=== PATIENT | male | born 1970 | race Asian ===

== ENCOUNTER 2018-04-26 09:24 | Emergency (ER) | payer MEDICAID ==
[2018-04-26 09:31] VITALS: Ht 172.7 cm
[2018-04-26 11:51] LABS: PLATELET COUNT 196 x10^3mcL (130-400); RED CELL DISTRIBUTION WIDTH 12.8 % (11.5-14.5)
[2018-04-26 12:03] LABS: BASOPHIL % 0 % (0-2)
[2018-04-26 12:05] LABS: CALCIUM 8.9 mg/dL (8.5-10.1); CARBON DIOXIDE 28.8 mmol/L (21-32); CHLORIDE SERUM 106 mmol/L (98-107); GFR1 > 60 mL/min; GLUCOSE SERUM 128 mg/dL (74-106); POTASSIUM SERUM 4.6 mmol/L (3.5-5.1); SODIUM SERUM 143 mmol/L (136-145)
[2018-04-26 12:11] LABS: ALBUMIN 3.9 g/dL (3.4-5.0); ALKALINE PHOSPHATASE 76 U/L (46-116); AST/SGOT 15 U/L (15-37); BILIRUBIN TOTAL 0.55 mg/dL (0.20-1.00); CHOLESTEROL 137 mg/dL (<200); CHOLESTEROL/HDL RATIO 2.9; HDL CHOLESTEROL 48 mg/dL (40-60); LIPASE 134 IU/L (73-393); TOTAL PROTEIN, SERUM 7.9 g/dL (6.4-8.2); TRIGLYCERIDES 70 mg/dL (<150)
[2018-04-26 12:18] LABS: FREE T4 1.01 ng/dL (0.76-1.46); FREE THYROXINE INDEX 2.5 ug/dL (1.4-4.5)
[2018-04-26 12:49] LABS: ALT/SGPT 14 U/L (16-63)
[2018-04-26 13:06] LABS: T3 TOTAL 0.69 ng/mL
[2018-04-26 13:52] LABS: microscopic required? NO
[2018-04-26 14:09] LABS: urine erythrocyte NEGATIVE (NEGATIVE)
[2018-04-26 14:34] VITALS: BP 159/79
== END 2018-04-26 14:34 | disposition home or self-care (01) ==
LOC: ED 09:24
PROVIDERS: Specialist
DX: R11.10 Vomiting, unspecified (principal); I10 Essential (primary) hypertension; E11.9 Type 2 diabetes mellitus without complications; Z86.73 Personal history of transient ischemic attack (TIA), and cerebral infarction without residual deficits
CPT/HCPCS: 82962; 83880; 84439; J7030; Q0162

== ENCOUNTER 2018-07-03 16:53 | Emergency (ER) | payer MEDICAID ==
[~2018-07-03] VITALS: Ht 172.7 cm; Wt 65.0 kg
[2018-07-03 17:40] VITALS: Ht 172.7 cm; Wt 65.0 kg
[2018-07-03 18:29] LABS: BASOPHIL % 0.2 % (0-2); PLATELET COUNT 196 x10^3mcL (130-400); RED CELL DISTRIBUTION WIDTH 13.4 % (11.5-14.5)
[2018-07-03 18:38] LABS: CALCIUM 8.4 mg/dL (8.5-10.1); CARBON DIOXIDE 29.7 mmol/L (21-32); CHLORIDE SERUM 105 mmol/L (98-107); CREATININE SERUM 0.8 mg/dL (0.7-1.3); GFR1 > 60 mL/min; GLUCOSE SERUM 111 mg/dL (74-106); POTASSIUM SERUM 3.6 mmol/L (3.5-5.1); SODIUM SERUM 143 mmol/L (136-145)
[2018-07-03 20:03] VITALS: BP 158/86
== END 2018-07-03 20:10 | disposition home or self-care (01) ==
LOC: ED 16:53
PROVIDERS: Emergency Medicine
DX: I10 Essential (primary) hypertension (principal); E11.9 Type 2 diabetes mellitus without complications; R51 Headache; Z86.73 Personal history of transient ischemic attack (TIA), and cerebral infarction without residual deficits
CPT/HCPCS: J3010; J3490; J7030

== ENCOUNTER 2018-07-04 07:51 | Emergency (ER) | payer MEDICAID ==
[~2018-07-04] VITALS: Ht 172.7 cm; Wt 68.0 kg
[2018-07-04 08:03] VITALS: BP 185/104; Ht 172.7 cm; Wt 68.0 kg
== END 2018-07-04 08:38 | disposition home or self-care (01) ==
LOC: ED 07:51
DX: I16.0 Hypertensive urgency (principal); I10 Essential (primary) hypertension; E11.9 Type 2 diabetes mellitus without complications; Z86.73 Personal history of transient ischemic attack (TIA), and cerebral infarction without residual deficits

== ENCOUNTER 2018-07-04 15:01 | Emergency (ER) | payer MEDICAID ==
[~2018-07-04] VITALS: Ht 172.7 cm; Wt 65.3 kg
[2018-07-04 15:08] VITALS: Ht 172.7 cm; Wt 65.3 kg
[2018-07-04 16:26] VITALS: BP 144/8
== END 2018-07-04 16:26 | disposition home or self-care (01) ==
LOC: ED 15:01
DX: I16.0 Hypertensive urgency (principal); I10 Essential (primary) hypertension; E11.9 Type 2 diabetes mellitus without complications; Z86.73 Personal history of transient ischemic attack (TIA), and cerebral infarction without residual deficits
CPT/HCPCS: J0780; J1885

== ENCOUNTER 2019-09-02 14:02 | Emergency (ER) | payer OTHER ==
[~2019-09-02] VITALS: Ht 170.2 cm; Wt 74.8 kg
[2019-09-02 14:55] VITALS: Ht 170.2 cm; Wt 74.8 kg
[2019-09-02 17:30] VITALS: BP 122/78
== END 2019-09-02 17:30 | disposition home or self-care (01) ==
LOC: ED 14:02
DX: J40 Bronchitis, not specified as acute or chronic (principal); R42 Dizziness and giddiness; E11.9 Type 2 diabetes mellitus without complications; I10 Essential (primary) hypertension; Z86.73 Personal history of transient ischemic attack (TIA), and cerebral infarction without residual deficits
CPT/HCPCS: 82962